=== PATIENT | female | born 1985 | race Caucasian/White ===

== ENCOUNTER → 2019-02-15 15:04 | Outpatient (CLI) | payer OTHER, SELFPAY ==
[2019-02-16 14:02] LABS: Strep Grp B PCR NEG for Grp B Strep
== END ==
PROVIDERS: Visit Provider Obstetrics & Gynecology
DX: Z34.83 Encounter for supervision of other normal pregnancy, third trimester (principal)
CPT/HCPCS: 87653

== ENCOUNTER 2019-03-03 15:37 | Outpatient (CLI) | payer OTHER, SELFPAY ==
--- NOTE | 2019-03-03 15:43 | DI.US.S_ITS ---
PROCEDURE: US OB BIOPHYSICAL PROFILE INDICATIONS: POST DATES TECHNIQUE: Real-time scanning was performed of the fetus for biophysical profile, with image documentation. Color and pulse Doppler interrogation was also performed of the umbilical artery near its insertion into the placenta. COMPARISON: [facility], , US OB >= 14 WEEKS FETUS, 03/03/2019, 15:06. [facility], , US OB >= 14 WEEKS FETUS, 02/15/2019, 14:52. FINDINGS: General: A single living intrauterine gestation is present. Presentation: Vertex Amniotic fluid index: 16.2 cm, normal range is 5-24 cm. heart rate: 136 beats per minute. Maternal cervical canal: 4.0 cm long. Normal lower limit is 2.5 cm. . Biophysical profile: Tone: 2 points. Movement: 2 points. Respiration: 2 points. Largest pocket of fluid: 2 points. Umbilical artery Doppler: SD ratio 1.9-2.6 IMPRESSION: 1. Limited examination demonstrates single living intrauterine fetus. 2. Biophysical profile score 8/8. 3. Normal umbilical cord Dopplers. Dictated by: Tana Dewitt MD, PhD on 03/03/2019 at 17:39 Approved by: Tana Dewitt MD, PhD on 03/03/2019 at 17:45
--- NOTE | 2019-03-03 17:17 | PM.OBTRLD ---
Visit Information Visit Information Date of evaluation: 03/03/19 Primary OB Provider: Sugey Cervantes On-call OB Provider: Sugey Cervantes Reason for Evaluation: Yes non-stress test Comments/Additional reasons for admission: This patient is a 33-year-old 011 at 40 weeks presenting from clinic for NST and BPP. The patient presented for postdates testing, and was found to have a normal KHALIF but no movement seen on brief transabdominal ultrasound. Given clinic conditions, the patient was transferred to the Center for further evaluation. Patient describes normal movement and no complaints obstetrical or otherwise throughout, except that she is recovering from a sinus infection. Patient has had an uncomplicated . Vital Signs Vital Signs: 122/72, heart rate 93 PFSH Medical History Abnormal biochemical finding on screening of mother (Acute) Acne (Acute) Adjustment disorder (Acute) Adult body mass index greater than 30 (Acute) Chronic back pain (Chronic ~2006) Corneal guttata (Acute) Depressive disorder (Acute) Disc degeneration (Acute) Ectopic (Acute) Folliculitis (Acute) H/O transfusion of whole blood (Acute) Headache (Acute) Hypothyroidism (Acute) Low grade squamous intraepithelial lesion (Acute) Post traumatic stress disorder (PTSD) (Chronic ~2006) Rhinitis (Acute) Somatic dysfunction of pelvic region (Acute) Thoracic spondylosis (Acute) Surgical History Anesthesia (Resolved) History of salpingectomy (Acute) Family History Mother Mental health problem Grandfather Stroke Grandmother Breast cancer Social History marital status: household members: significant other and children education level: college (some college) occupational status: employed (works in Admin) current occupational exposures/hazards: No special zahraa needs: No Smoking Status: Never smoker second hand exposure: No Review of Systems Constitutional Constitutional: Reports system reviewed and no additional complaints, except as documented Evaluation Evaluation Baseline heart rate: 135 Variability: Average (6-10) monitor accelerations: Present monitor decelerations: Absent Contraction Frequency (minutes): 10 Category of Tracing: I Comments: Per report, BPP 01/05 Diagnosis, Plan/Disposition Plan/Disposition Plan: Given reassuring status, patient was discharged home. Patient to follow up for postdates testing on Wednesday, discussed induction next week. OB Disposition: home
== END 2019-03-03 17:30 | disposition home or self-care (01) ==
LOC: LABOR 17:33 → OB 03-10 12:21
PROVIDERS: Visit Provider Obstetrics & Gynecology
DX: O48.0 Post-term pregnancy (principal); Z3A.40 40 weeks gestation of pregnancy
CPT/HCPCS: 59025; 76819; G0378; G0379

== ENCOUNTER 2019-03-06 17:12 | Outpatient (CLI) | payer OTHER, SELFPAY | END 2019-03-06 17:51 | disposition home or self-care (01) | LOC: LABOR 17:15 → OB 03-09 13:30 | PROVIDERS: Visit Provider Obstetrics & Gynecology | DX: O48.0 Post-term pregnancy (principal); Z3A.40 40 weeks gestation of pregnancy | CPT/HCPCS: 59025; G0378; G0379 ==

== ENCOUNTER 2019-03-07 02:11 | Inpatient (IN) | payer OTHER, SELFPAY ==
[2019-03-07] VITALS (9 sets, daily range): BP systolic 123–151; BP diastolic 74–100; PULSE 102–140; RESP 12–24; TEMP 36.4–36.5; O2SAT 98–100
[2019-03-07] MEDS: LACTATED RINGERS 1,000 ML 100 ML IV ×3 (04:20→17:36)
[2019-03-07 05:28] LABS: Add Manual Diff / Slide Review NO; Basophils Absolute Auto 0 /uL (0-100); Basophils Percent Auto 0.2 % (0-2); Eosinophils Absolute Auto 0 /uL (0-450); Hematocrit 36.1 % (36-46); Hemoglobin 11.9 g/dL (12.0-16.0); Lymphocytes Absolute Auto 1400 /uL (1100-4500); Lymphocytes Percent Auto 10.5 % (25-40); Mean Corpuscular Hemoglobin 27.7 PG (26-34); Monocytes Absolute Auto 400 /uL (0-900); Neutrophils Absolute Auto 11300 /uL (1500-7000); Neutrophils Percent Auto 86.3 % (50-75); Platelet Count 255 X10^3/uL (150-400); Red Cell Distribution Width 16.8 % (11.6-14.8); White Blood Cell Count 13.1 X10^3/uL (4.5-11.0)
[2019-03-07] MEDS: FENT 2MCG/ML BUPIV 0.125% EPI 200 MCG/100 ML PLAST..BAG 13.5 MCG EPIDURAL (06:09)
--- NOTE | 2019-03-07 10:32 | PM.OBHP.1 ---
OB HPI History of Present Condition Chief complaint: maternity Narrative: Rach Tompkins is a 33 year old @40+4, with a complicated by 2 vessel cord, mixed testing for the presence of downs syndrome, and maternal and paternal G6PD mutation, presenting in early labor. She reports that she began having painful, regular contractions overnight, with no VB, LOF, decreased FM, or any other complaints. 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 The fetus has a 2 vessel cord but no other abnormalities on anatomy scan, and serum screening was positive for downs but cell free DNA was negative. THe patient has a history of VAVD of a 5#11 for distress, and a ruptured ectopic . Evaluation Evaluation Baseline heart rate: 145 Variability: Average (6-10) monitor accelerations: Present monitor decelerations: Prolonged (x1) Contraction Frequency (minutes): 5 Uterine Contraction Intensity: Moderate Category of Tracing: II Cervical dilation (cm): 2 Cervical effacement (%): 70 station: -2 Laboratory results: Laboratory Tests 03/07/19 03/07/19 04:20 04:20 WBC 13.1 H RBC 4.30 Hgb 11.9 L Hct 36.1 MCV 84.0 MCH 27.7 MCHC 33.0 RDW 16.8 H Plt Count 255 Neut % (Auto) 86.3 H Lymph % (Auto) 10.5 L [place] % (Auto) 3.0 Eos % (Auto) 0.0 L Baso % (Auto) 0.2 Neut # (Auto) 58240 H Lymph # (Auto) 1400 [place] # (Auto) 400 Eos # (Auto) 0 Baso # (Auto) 0 Blood Type A Positive Antibody Screen Negative [facility] Medical History Abnormal biochemical finding on screening of mother (Acute) Acne (Acute) Adjustment disorder (Acute) Adult body mass index greater than 30 (Acute) Chronic back pain (Chronic ~2006) Corneal guttata (Acute) Depressive disorder (Acute) Disc degeneration (Acute) Ectopic (Acute) Folliculitis (Acute) H/O transfusion of whole blood (Acute) Headache (Acute) Hypothyroidism (Acute) Low grade squamous intraepithelial lesion (Acute) Post traumatic stress disorder (PTSD) (Chronic ~2006) Rhinitis (Acute) Somatic dysfunction of pelvic region (Acute) Thoracic spondylosis (Acute) Surgical History Anesthesia (Resolved) History of salpingectomy (Acute) Family History Mother Mental health problem Grandfather Stroke Grandmother Breast cancer Social History marital status: household members: significant other and children education level: college (some college) occupational status: employed (works in [employer]) current occupational exposures/hazards: No special zahraa needs: No Smoking Status: Never smoker second hand exposure: No Meds Home Medications and Allergies Home Medications Medication Instructions Recorded Confirmed Type levothyroxine 88 mcg capsule 88 mcg PO DAILY 02/15/19 03/07/19 History prenat.vits,james,kuv-[id number] 1 tab PO DAILY 02/15/19 03/07/19 History Allergies Allergy/AdvReac Type Severity Reaction Status Date / Time No Known Drug Allergies Allergy Verified 03/06/19 16:25 Review of Systems Constitutional Constitutional: Reports system reviewed and no additional complaints, except as documented Cardiovascular Cardiovascular: Reports system reviewed; no additional complaints, except as documented Respiratory Respiratory: Reports system reviewed and no additional complaints, except as documented Gastrointestinal Gastrointestinal: Reports system reviewed and no additional complaints, except as documented Genitourinary Genitourinary: Reports as per HPI Neurologic Neurologic: Reports system reviewed and no additional complaints, except as documented Exam Vital Signs (past 8 hours): 107/73, HR 112 Const General: cooperative, healthy appearing and comfortable GI Other: Appropriately gravid, epiduralized Objective Labs Result Diagrams: 03/07/19 04:20 Labs: Laboratory Results - last 24 hr 03/07/19 03/07/19 04:20 04:20 WBC 13.1 H RBC 4.30 Hgb 11.9 L Hct 36.1 MCV 84.0 MCH 27.7 MCHC 33.0 RDW 16.8 H Plt Count 255 Neut % (Auto) 86.3 H Lymph % (Auto) 10.5 L [place] % (Auto) 3.0 Eos % (Auto) 0.0 L Baso % (Auto) 0.2 Neut # (Auto) 78103 H Lymph # (Auto) 1400 [place] # (Auto) 400 Eos # (Auto) 0 Baso # (Auto) 0 Blood Type A Positive Antibody Screen Negative Assessment and Plan Assessment and Plan Assessment and Plan narrative: This patient presented overnight in early labor, and received an epidural. The patient has a cat 2 EFM for 1x late and 1x prolonged, with otherwise reassuring features. Will continue to closely monitor. Patient will not be augmented. - IV fluids - cEFM, toco - Routine intrapartum care
--- NOTE | 2019-03-07 11:52 | PM.OBPNLAB ---
Date/Time Date Patient Seen: 03/07/19 Time Patient Seen: 11:52 Pain Control Pain control: epidural Comments: Patient with cat 2 EFM since epidural with episodic late and prolonged decelerations in the setting of rapid cervical change. +moderate variability, +accels, +scalp stim. Patient found to be 8-9 with bulging bag, head well applied, AROM at 11:45 for light mec with subsequent prolonged decel to 80s, recovered spontaneously with repositioning. Will continue to closely monitor, with expectant management given rapid change and reassuring features as above. Pelvic Exam Dilation (cm): 8 Effacement (%): 100 station: -1 Amniotic membrane status: Ruptured (AROM, light mec) Contractions Contractions on admission: regular Monitor mode: External Contraction frequency (min): 3 Contraction duration (min): 1 Contraction pattern: Regular Contraction phase: Resting Status status: Category ll Heart Rate Baseline: 125 Monitor Accelerations: Present Monitor Decelerations: Prolonged Monitor Variability: Moderate Assessment and Plan Assessment: active labor Plan: continuous present management
--- NOTE | 2019-03-07 13:42 | PM.PREOP ---
Pre-operative Note Interval Note History & Physical reviewed/Exam performed by Physician: Yes Changes to H&P: No H&P completed within 30 days and has changed as indicated here:: Patient with cat 2 EFM for increasing late and prolonged decelerations, remains 8.5cm dilated. Counselled for section.
[2019-03-07] MEDS: CEFAZOLIN 2 GM/100 ML FROZ.PIGGY IV (13:55)
[2019-03-07] MEDS: AZITHROMYCIN 500 MG in DEXTROSE 5% IN WATER 250 ML IV (14:01)
--- NOTE | 2019-03-07 14:05 | SUR.OPER ---
Supine on Padded OR bed, head on pillow, safety belt at thigh, arms secured on padded arm boards at <90 degrees abduction. Bump under right buttock. Legs uncrossed with pillow under knees, gel pad to heels, tape over blanket to lower legs.
--- NOTE | 2019-03-07 15:44 | SUR.OPER ---
FHR 126 Alive boy at 14:10 cord blood x 2 and placenta given to OB nurse
--- NOTE | 2019-03-07 15:45 | SUR.OPER ---
Retrograde irrigation with 320 ml of saline through the Garcia port into the bladder performed during procedure.
[2019-03-07] MEDS: fentaNYL 100 MCG/2 ML INJ 50 MCG IV (15:51)
--- NOTE | 2019-03-07 15:55 | P.OP_ITS ---
Operative Date/Time/Diagnoses Date of procedure: 03/07/19 Time of procedure: 13:56 Pre-op diagnosis: labor, post-dates, cat 2 EFM Post-op diagnosis: same Procedure & Clinicians Procedure: primary section Same procedure as scheduled: Yes Indications: cat 2 EFM, arrest of dilation in the second stage of labor Surgeon: Sugey Cervantes Harm Reduction Worker: Eri Buitrago Anesthesia Type: General and Epidural Operative Notes Findings: normal tubes and ovaries. Male infant in cephalic presentation, apgars , weight 7#4. Bloody urine at beginning of case, clearing by end. Closure Type: primary Specimen(s): none sent Applied: catheter Estimated Blood Loss (mL): 1,300 Blood products transfused: none Procedure in detail: EBL: 1300ccs Fluids:1400ccs, w/ 30u pitocin UOP: 580ccs Procedures: The patient was taken to the operating room where epidural anesthesia was tested and initially found to be adequate. She was prepped and draped in the normal sterile fashion in the dorsal supine position with a leftward tilt. A Pfannenstiel skin incision was made with a scalpel and carried through to the underlying layer of fascia. The fascia was incised in the midline and the incision extended laterally with Barcenas scissors. The inferior aspect of this incision was grasped with Ashley clamps, elevated. and the underlying rectus muscles dissected off bluntly. Attention was then turned to the superior aspect of this incision which, in a similar fashion, was grasped, tented up with the Ashley clamps, and the rectus muscles dissected off bluntly. The rectus muscles were then in the midline, and the peritoneum identified, tented up, and entered sharply with Metzenbaum scissors. The peritoneal incision was extended superiorly and inferiorly with good visualization of the bladder. The bladder blade was inserted and the vesicao- uterine peritoneum identified, grasped with pickups, and entered sharply with the Metzenbaum scissors. This incision was extended laterally, and the bladder flap created digitally. The bladder blade was then reinserted and the lower uterine segment incised in transverse fashion with the scalpel. The uterine incision was bluntly extended laterally. The bladder blade was removed, and the infant's head delivered atraumatically. The cord was clamped and cut, and the infant was handed off to awaiting pediatricians. The placenta was then removed spontaneously, and the uterus was exteriorized and cleared of all clots and debris. At this point, of cervical laceration was noted and repaired with 1 0 chromic in a running locked fashion. This line of suture was continued to repair the uterine incision. A 2nd layer of the same suture was used in a running, locked fashion to obtain hemostasis, with [id number] where necessary. The uterus was returned to the abdomen, and the gutters were cleared of all clots and debris. Due to the nature of the cervical extension, the bladder was retrograde filled with saline given the patient's G6PD deficiency. No defects in the bladder were noted. The peritoneum was closed with 3-0 Vicryl, and the fascia reapproximated with 0 Vicryl in a running fashion. A subcutaneous layer was placed with 3 0 Vicryl in an interrupted fashion and the skin was closed with 4-0 biosyn in a running fashion. The patient tolerated the procedure well sponge lap and needle counts were correct x2. 2 g of Ancef were given at commencement of the case. The patient was taken to the recovery room in stable condition. Complications: none Post-operative Condition: stable Disposition: PACU Plan for aftercare: Routine postoperative care
[2019-03-07] MEDS: MORPHINE 10 MG/ML INJ IV (16:04)
[2019-03-07] MEDS: OXYCODONE/ACETAMINOPHEN 5/325 TABLET 1 TAB PO (16:21)
[2019-03-07] MEDS: KETOROLAC 30 MG/ML VIAL IV (18:04)
[2019-03-07] MEDS: ONDANSETRON 4 MG/2 ML INJ IV (18:04)
[2019-03-07] MEDS: OXYCODONE IR 5 MG TABLET PO (20:34)
[2019-03-07 22:46] LABS: Add Manual Diff / Slide Review NO; Basophils Absolute Auto 100 /uL (0-100); Basophils Percent Auto 0.5 % (0-2); Eosinophils Absolute Auto 0 /uL (0-450); Eosinophils Percent Auto 0.2 % (2-4); Hematocrit 32.4 % (36-46); Hemoglobin 10.6 g/dL (12.0-16.0); Lymphocytes Absolute Auto 1900 /uL (1100-4500); Lymphocytes Percent Auto 16.6 % (25-40); Mean Corpuscular HGB Conc 32.7 % (30-36); Mean Corpuscular Hemoglobin 27.5 PG (26-34); Mean Corpuscular Volume 83.9 fL (80-100); Monocytes Absolute Auto 500 /uL (0-900); Monocytes Percent Auto 4.6 % (3-14); Neutrophils Absolute Auto 8900 /uL (1500-7000); Neutrophils Percent Auto 78.1 % (50-75); Platelet Count 233 X10^3/uL (150-400); Red Blood Cell Count 3.86 X10^6/uL (4.0-5.2); Red Cell Distribution Width 16.7 % (11.6-14.8); White Blood Cell Count 11.5 X10^3/uL (4.5-11.0)
[2019-03-08] MEDS: KETOROLAC 30 MG/ML VIAL IV ×2 (01:30→13:27)
[2019-03-08 01:36] VITALS: BP 130/82; PULSE 98; RESP 16; TEMP 37.3
[2019-03-08] MEDS: OXYCODONE IR 5 MG TABLET PO ×3 (05:41→19:53)
[2019-03-08] MEDS: LEVOTHYROXINE 88 MCG TABLET PO (05:42)
[2019-03-08 06:15] LABS: Hematocrit 29.6 % (36-46); Hemoglobin 9.8 g/dL (12.0-16.0)
[2019-03-08] MEDS: DOCUSATE 250 MG CAPSULE PO (07:39)
--- NOTE | 2019-03-08 08:19 | P.PNOB_ITS ---
Subjective - OB Subjective Patient comments: incisional pain and tolerating diet baby status: doing well and nursing well feeding status: exclusively breast feeding Narrative: This patient is postop day 1 status post a primary section for category 2 tracing and the setting of arrest of dilation in the active stage of labor. The section was complicated by a cervical laceration which was repaired, and the patient has recovered uneventfully. Date Patient Seen: 03/08/19 Time Patient Seen: 08:00 Interval history: The patient reports incisional pain, but this is well controlled enough that she is able to ambulate. Patient is voiding on her own as Garcia had already been removed, is tolerating p.o., reports a headache this morning but no other complaints. Exam Vital Signs (past 8 hours): 127/78, heart rate 115 Oxygen Delivery Method Room Air Const General: cooperative and healthy appearing Orientation: alert, awake and oriented x3 Resp Effort & Inspection: normal respiratory effort Auscultation: clear to auscultation bilaterally Cardio Rate: regular rate Rhythm: regular rhythm GI Palpation: soft and No tender Other: Fundus firm, well below U. Incision covered by bandage, clean dry intact. Objective Labs Result Diagrams: 03/08/19 05:50 Labs: Laboratory Results - last 24 hr 03/07/19 03/08/19 22:30 05:50 WBC 11.5 H RBC 3.86 L Hgb 10.6 L 9.8 L Hct 32.4 L 29.6 L MCV 83.9 MCH 27.5 MCHC 32.7 RDW 16.7 H Plt Count 233 Neut % (Auto) 78.1 H Lymph % (Auto) 16.6 L [place] % (Auto) 4.6 Eos % (Auto) 0.2 L Baso % (Auto) 0.5 Neut # (Auto) 8900 H Lymph # (Auto) 1900 [place] # (Auto) 500 Eos # (Auto) 0 Baso # (Auto) 100 Assessment & Plan Plan day: 1 plan OB: routine postop care Comments: This patient is meeting postoperative goals appropriately. Patient is a G6 PD heterozygote, we will continue to avoid Tylenol per pharmacy instructions. Patient otherwise recovering well. Hemoglobin dropped as appropriate, we'll continue to monitor for signs of acute blood loss anemia and hemolysis due to the stress of the surgery given her medical history. Time Spent With Patient Time: Total time spent is greater than 50% in coordination of care (as documented) at patient's floor/unit and/or counseling patient: Time with patient: less than 15 minutes
[2019-03-08] MEDS: IBUPROFEN 600 MG TABLET PO (19:52)
[2019-03-09] MEDS: IBUPROFEN 600 MG TABLET PO ×2 (01:31→07:58)
[2019-03-09] MEDS: OXYCODONE IR 5 MG TABLET PO ×3 (01:32→11:44)
[2019-03-09] MEDS: DOCUSATE 250 MG CAPSULE PO ×2 (06:07→07:58)
[2019-03-09] MEDS: LEVOTHYROXINE 88 MCG TABLET PO (06:07)
--- NOTE | 2019-03-09 10:17 | PM.OBPN.1 ---
Exam Vital Signs (past 8 hours): Oxygen Delivery Method Room Air 130/82, heart rate 96, respiratory rate 16, temp 99.1?, O2 sats 98% Const General: cooperative, healthy appearing and comfortable Orientation: alert, awake and oriented x3 Resp Effort & Inspection: normal respiratory effort Auscultation: clear to auscultation bilaterally Cardio Rate: regular rate Rhythm: regular rhythm GI Palpation: soft and No tender Other: Fundus firm, below U. incision clean, dry, intact. Objective Labs Result Diagrams: 03/08/19 05:50 Assessment & Plan Plan day: 2 plan OB: routine postop care and discharge home Comments: The patient is feeling well, in meeting postoperative goals with no concerns. Discussed with patient precautions for return. Discussed with patient follow-up in 1 week. Patient has been vocalized understanding. All questions answered. Time Spent With Patient Time: Total time spent is greater than 50% in coordination of care (as documented) at patient's floor/unit and/or counseling patient: Time with patient: less than 15 minutes
--- NOTE | 2019-03-09 10:20 | PM.OBDS.1 ---
Discharge Providers Provider Date of admission: 03/07/19 02:11 Discharge Date: 03/09/19 Consults: 03/07/19 16:42 Consult to Fast Food Supervisor Routine Comment: Discharge provider: Sugey Cervantes MD Summary Hospital Course Date Patient Seen: 03/09/19 Time Patient Seen: 10:20 Procedures: Primary section Hospital Course: This patient was admitted in labor postdates, and progressed to 8-9 cm dilated. Here she arrested in dilation, and had a category 2 tracing that became resistant to conservative resuscitation. She was taken for primary section, which is complicated by a cervical extension of the hysterotomy which was repaired intraoperatively without complication. Her recovery was uneventful, and she was discharged home on postoperative day 2. Peripartum Data Delivery Method: Emergency Section complications: none 1: Gender: Male Disposition of : home Status at Discharge Cognitive/behavioral status at discharge: at baseline, oriented Functional status at discharge: independent ambulation Overall status at discharge: patient is progressing back to baseline Time Spent with Patient Time attestation: Total time spent providing and/or coordinating discharge services: Time spent: Less than 30 minutes Objective Labs Result Diagrams: 03/08/19 05:50 Exam Vital Signs (past 8 hours): Oxygen Delivery Method Room Air Narrative Exam Narrative: see day of discharge progress note Discharge Plan Discharge Plan Patient Disposition: Home Discharge orders & Medications Prescriptions: New oxycodone 5 mg tablet 5 mg PO Q8H PRN (Reason: pain) Qty: 14 RF: 0 docusate sodium [Colace] 100 mg capsule 100 mg PO BID Qty: 60 RF: 0 ibuprofen 600 mg tablet 600 mg PO Q8H PRN (Reason: pain (scale score 4-6)) Qty: 30 RF: 0 Continued prenat.vits,james,[id number] Tablet 1 tab PO DAILY RF: 0 levothyroxine 88 mcg capsule 88 mcg PO DAILY RF: 0 Follow up/Referrals: Sugey Cervantes MD [Physician] - 1 Week (incision check) Diet/Activity/Treatments Diet: Regular Activity: Nothing in the vagina for 6 weeks. Avoid heavy lifting for 6 weeks. Bandage well, if 1st visit. If you have increasing bleeding, fevers, chills, discharge, pain, trouble breathing, headaches or visual changes, or any other symptoms, call or come to the emergency room. Visit Report/Discharge Packet Instructions: DI for
== END 2019-03-09 12:32 | disposition home or self-care (01) | DRG 787 ==
PROVIDERS: Admitting Provider Obstetrics & Gynecology; Visit Provider Obstetrics & Gynecology
PROC: 10D00Z1 Extraction of Products of Conception, Low, Open Approach (ICD-10-PCS; CPT 59514; principal; 2019-03-07 13:30)
DX: O48.0 Post-term pregnancy (principal); O71.3 Obstetric laceration of cervix; Z3A.40 40 weeks gestation of pregnancy; Z37.0 Single live birth; O76 Abnormality in fetal heart rate and rhythm complicating labor and delivery; O62.1 Secondary uterine inertia; O77.0 Labor and delivery complicated by meconium in amniotic fluid
CPT/HCPCS: 01967; 01968; 36415; 59050; 59514; 59515; 85014; 85018; 85025; 86850; 86900; 86901; G0379; J0690; J1885; J2270; J2274; J2405; J2704; J3010